=== PATIENT | male | born 1985 | race Caucasian/White ===

== ENCOUNTER 2016-07-01 03:38 | Emergency (ER) | payer OTHER ==
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
== END 2016-07-01 04:00 ==
LOC: ER 03:38
DX: Z02.89 Encounter for other administrative examinations (principal); F10.129 Alcohol abuse with intoxication, unspecified; F17.210 Nicotine dependence, cigarettes, uncomplicated; Z88.8 Allergy status to other drugs, medicaments and biological substances; Z79.899 Other long term (current) drug therapy

== ENCOUNTER 2016-08-17 20:42 | Emergency (ER) | payer OTHER ==
--- NOTE | 2016-08-20 01:37 | ER ---
ADMIT: 08/17/2016 RM/LOC: ER [facility] MR#: [id number] [address] [address] [facility] [place] [address] Emergency Room Report SEX: M AGE: 31 : 1985 DATE: 08/17/2016 ADDENDUM: A 31-year-old male, comes in with complaints of body aches, headache, fevers, nausea, vomiting, and a cough. It has been going on for about five days. He is otherwise healthy. He takes no medications routinely. He is a smoker. PHYSICAL EXAMINATION: VITAL SIGNS: Blood pressure is 158/88, heart rate 128, respirations 20, temp 102.8, sats 97%. EMERGENCY DEPARTMENT COURSE: We did work up the patient in the ER and got a CBC which showed a white count of 16.4, normal chemistries. Influenza was negative. Lactic acid was 1. Procalcitonin 0.05. Cardiac enzymes are negative x1. INR is 1.05. While in the ER, he did get a total of 2 L normal saline, and his tachycardia improved. He was given Tylenol for his fever. He does have the elevated white blood cell count. So, while he was here, he got a dose of azithromycin. We will be sending him home on a Z-Anurag. He was given Reglan and Zofran for his nausea and that was significantly improved and his headache was improved. He is discharged home with a prescription for Zofran for nausea and a Z-Anurag. He is to drink plenty of fluids. Return to the ER for any concerning symptoms. Otherwise[facility]. DIAGNOSES: 1. Volume depletion. 2. Nausea and vomiting. 3. Cough. 4. Likely viral illness. Tin Estevez MD/ tian JOB #: [id number] CC: Tin Estevez MD, Attending Physician Jacek Morton MD, Family Physician
== END 2016-08-17 23:31 | disposition home or self-care (01) ==
LOC: ER 20:42
DX: B34.9 Viral infection, unspecified (principal); E86.9 Volume depletion, unspecified; F17.210 Nicotine dependence, cigarettes, uncomplicated; Z88.8 Allergy status to other drugs, medicaments and biological substances